=== PATIENT | male | born 1945 | race Caucasian/White ===

== ENCOUNTER 2023-02-25 12:34 | Emergency (ER) | payer OTHER ==
[~2023-02-25] VITALS: Ht 182.9 cm; Wt 95.3 kg
[2023-02-25 12:55] VITALS: BP_SYST 135; PULSE 85; RESP 18; TEMP 98.3; O2SAT 98
[2023-02-25 15:08] VITALS: BP_SYST 135; PULSE 85; RESP 18; TEMP 98.3; O2SAT 98
== END 2023-02-25 14:55 | disposition home or self-care (01) ==
LOC: SED 12:34
DX: S01.01XA Laceration without foreign body of scalp, initial encounter (principal); E78.5 Hyperlipidemia, unspecified; Z79.899 Other long term (current) drug therapy; W19.XXXA Unspecified fall, initial encounter; Y93.89 Activity, other specified; Y92.89 Other specified places as the place of occurrence of the external cause; Y99.8 Other external cause status
CPT/HCPCS: 70450-TC; 76376; 99284

== ENCOUNTER 2023-03-04 14:04 | Emergency (ER) | payer OTHER ==
--- NOTE | 2023-03-04 14:18 | NUR ---
ER at bedside examining patient.
--- NOTE | 2023-03-04 14:22 | NUR ---
Patient given written and verbal discharge instructions and verbalizes understanding. ER MD discussed with patient the results and treatment provided. Patient in stable condition. ID arm band removed. Opportunity for questions provided and answered. Medication side effect fact sheet provided.
== END 2023-03-04 14:22 | disposition home or self-care (01) ==
LOC: SED 14:04
DX: Z48.02 Encounter for removal of sutures (principal)
CPT/HCPCS: 99281

== ENCOUNTER 2023-07-11 08:28 | Emergency (ER) | payer OTHER ==
[~2023-07-11] VITALS: Ht 182.9 cm; Wt 95.3 kg
[2023-07-11 08:35] VITALS: BP_SYST 156; PULSE 67; RESP 18; TEMP 98; O2SAT 94
[2023-07-11] MEDS ORDERED: DIPHTH,PERTUSS(ACELL),TET VAC 0.5 ML VIAL (Tdap) I.M. ONE (08:45)
[2023-07-11 11:42] VITALS: BP_SYST 131; PULSE 61; RESP 16; TEMP 98.1; O2SAT 98
== END 2023-07-11 10:39 | disposition home or self-care (01) ==
LOC: SED 08:28
DX: S01.01XA Laceration without foreign body of scalp, initial encounter (principal); E78.5 Hyperlipidemia, unspecified; Z79.899 Other long term (current) drug therapy; Y03.0XXA Assault by being hit or run over by motor vehicle, initial encounter; Y93.89 Activity, other specified; Y92.89 Other specified places as the place of occurrence of the external cause; Y99.8 Other external cause status
CPT/HCPCS: 70450-TC; 72125-TC; 76376; 90715; 99285

== ENCOUNTER 2023-07-21 14:17 | Emergency (ER) | payer OTHER ==
[~2023-07-21] VITALS: Ht 182.9 cm; Wt 95.3 kg
[2023-07-21 14:30] VITALS: BP_SYST 121; PULSE 67; RESP 19; TEMP 98; O2SAT 99
[2023-07-21 14:59] VITALS: BP_SYST 117; PULSE 75; RESP 18; TEMP 97.5; O2SAT 97
== END 2023-07-21 14:55 | disposition home or self-care (01) ==
LOC: SED 14:17
DX: Z48.02 Encounter for removal of sutures (principal); Z79.899 Other long term (current) drug therapy
CPT/HCPCS: 99281